=== PATIENT | male | born 1995 | race Caucasian/White ===

== ENCOUNTER 2023-12-30 23:25 | Emergency (ER) | payer SELFPAY ==
[~2023-12-30] VITALS: Ht 170.2 cm; Wt 83.9 kg
[2023-12-30 23:28] VITALS: BP 124/74; PULSE 97; RESP 16; TEMP 98.3; O2SAT 98
[2023-12-31] MEDS: KETOROLAC 30 MG/ML VIAL IM ONE (00:48)
[2023-12-31 02:04] VITALS: BP 110/72; PULSE 72; RESP 18
[2023-12-31] MEDS ORDERED: ACET500T99 PO (02:30)
[2023-12-31] MEDS ORDERED: IBUP-2218 PO (02:30)
== END 2023-12-31 02:37 | disposition home or self-care (01) ==
LOC: MED 23:25
DX: S02.2XXA Fracture of nasal bones, initial encounter for closed fracture (principal); S00.531A Contusion of lip, initial encounter; Z79.899 Other long term (current) drug therapy; Y08.89XA Assault by other specified means, initial encounter; Y93.89 Activity, other specified; Y92.89 Other specified places as the place of occurrence of the external cause; Y99.8 Other external cause status
CPT/HCPCS: 70486; 96372; 99285; J1885